=== PATIENT | male | born 1950 | race Caucasian/White ===

== ENCOUNTER 2018-06-09 06:15 | Outpatient (CLI) | payer BC, SELFPAY ==
[2018-06-10 10:46] LABS: PSA, Diagnostic <0.1 ng/ml (0-4.5)
== END 2018-06-09 06:35 ==
PROVIDERS: PCP Family Medicine; Visit Provider Family Medicine
DX: Z85.46 Personal history of malignant neoplasm of prostate (principal)
CPT/HCPCS: 36415; 84153

== ENCOUNTER 2020-01-16 02:21 | Outpatient (CLI) | payer BC, SELFPAY ==
[2020-01-16 08:38] LABS: Calculated LDL 149 mg/dL (<100); Cholesterol 225 mg/dL (<200); Glucose 93 mg/dL (74-106); HDL Cholesterol 59 mg/dL (40-60); Triglyceride 87 mg/dL (<150)
[2020-01-17 09:28] LABS: PSA, Diagnostic <0.1 ng/mL (0.0-4.5)
== END 2020-01-16 02:41 ==
PROVIDERS: PCP Family Medicine; Visit Provider Family Medicine
DX: C61 Malignant neoplasm of prostate (principal); R73.9 Hyperglycemia, unspecified; E78.5 Hyperlipidemia, unspecified
CPT/HCPCS: 36415; 80061; 82947; 84153

== ENCOUNTER 2020-11-30 02:42 | Outpatient (CLI) | payer MEDICARE, SELFPAY ==
[2020-11-30 08:34] LABS: Abs Immature Grans 0.01 10^3/uL (0.0-0.06); Absolute Basophil Count 0.05 10^3/uL (0.0-0.2); Absolute Eosinophil Count 0.12 10^3/uL (0.0-0.7); Absolute Lymphocyte Count 1.32 10^3/uL (1.2-3.4); Absolute Monocyte Count 0.67 10^3/uL (0.1-0.8); Absolute Neutrophil Count 2.02 10^3/uL (1.2-6.7); Basophils % 1.2; Eosinophils % 2.9; HCT 47.1 % (40.0-50.0); HGB 15.9 g/dL (13.5-17.5); Immature Grans % 0.2; Lymphocytes % 31.5; MCH 32.1 pg (27.0-33.0); MCHC 33.8 % (32.0-36.0); MPV 9.8 fL (8.0-11.0); Neutrophils % 48.2; Nucleated RBC 0 %; Platelet Count 167 10^3/uL (130-400); RBC 4.96 10^6/uL (4.36-5.78); RDW 11.9 % (11.8-14.1); RDW-SD 42.1 fL; WBC 4.19 10^3/uL (4.4-10.8)
[2020-11-30 09:54] LABS: ALT 22 U/L (16-63); AST 20 U/L (15-37); Albumin 3.8 g/dL (3.4-5.0); Alkaline Phosphatase 59 U/L (46-116); Anion Gap 6.7 mmol/L (3-11); BUN 25 mg/dL (7-18); Bilirubin, Total 0.6 mg/dL (0.2-1.0); CO2 26.3 mmol/L (21.0-32.0); CREATININE 1.3 mg/dL (0.70-1.30); Calcium 8.8 mg/dL (8.5-10.1); Chloride 106 mmol/L (98-107); Glucose 102 mg/dL (74-106); Potassium 4.8 mmol/L (3.5-5.1); Sodium 139 mmol/L (136-145); TSH (W/Ref FT4) 2.07 uIU/mL (0.36-3.74); Total Protein 6.7 g/dL (6.4-8.2)
== END 2020-11-30 02:43 | disposition home or self-care (01) ==
LOC: LBO 02:42
PROVIDERS: PCP Family Medicine; Visit Provider Family Medicine
DX: R10.9 Unspecified abdominal pain (principal); E03.9 Hypothyroidism, unspecified; G47.33 Obstructive sleep apnea (adult) (pediatric)
CPT/HCPCS: 36415; 80053; 84443; 85025

== ENCOUNTER 2021-01-10 10:07 | Emergency (ER) | payer MEDICARE, SELFPAY ==
[2021-01-10 10:17] LABS: Source Nasal/Nares
[2021-01-10 11:08] LABS: COVID-19 PCR Negative (Negative)
--- NOTE | 2021-01-10 11:16 | NUR.NOTE ---
Nursing Note: Patient sent per hospital to get COVID swabbed. Has had a cough for a few days. Denies need to be seen by a physician. Patient swabbed by [facility] in his car.
--- NOTE | 2021-01-10 17:28 | NUR.NOTE ---
Negative Covid result given to Dylan Kang. Verbalizes understanding.Nursing Note:
--- NOTE | 2021-01-20 10:33 | W.ED.FU ---
[facility] employee presented for Covid swab. Medical screening exam was not requested. I did not evaluate this patient.
== END 2021-01-10 11:16 ==
LOC: ER 10:28
PROVIDERS: Emergency Provider Student in an Organized Health Care Education/Training Program; PCP Family Medicine
DX: Z20.822 Contact with and (suspected) exposure to COVID-19 (principal); Z53.21 Procedure and treatment not carried out due to patient leaving prior to being seen by health care provider
CPT/HCPCS: 87635

== ENCOUNTER 2021-02-04 03:27 | Outpatient (CLI) | payer MEDICARE, SELFPAY ==
[2021-02-04 12:54] LABS: Source Nasal/Nares
[2021-02-05 08:58] LABS: COVID-19 PCR Negative (Negative)
== END 2021-02-04 03:28 | disposition home or self-care (01) ==
LOC: LBO 03:27
PROVIDERS: Nurse Practitioner Family; PCP Family Medicine; Visit Provider Surgery
DX: Z20.822 Contact with and (suspected) exposure to COVID-19 (principal); Z01.818 Encounter for other preprocedural examination
CPT/HCPCS: 87635

== ENCOUNTER 2021-12-24 12:11 | Outpatient (CLI) | payer MEDICARE, SELFPAY ==
[2021-12-24 12:09] LABS: Calculated LDL 149 mg/dL (<100); Cholesterol 228 mg/dL (<200); HDL Cholesterol 58 mg/dL (40-60); Triglyceride 107 mg/dL (<150)
[2021-12-24 18:09] LABS: PSA, Screening <0.1 ng/mL (<=4.5)
[2021-12-25 11:10] LABS: Lyme Ab w Rflx to Lyme Confirm Negative (Negative)
== END 2021-12-24 12:12 | disposition home or self-care (01) ==
LOC: LBO 12:14
PROVIDERS: PCP Family Medicine; Visit Provider Family Medicine
DX: E78.5 Hyperlipidemia, unspecified (principal); Z12.5 Encounter for screening for malignant neoplasm of prostate; W57.XXXA Bitten or stung by nonvenomous insect and other nonvenomous arthropods, initial encounter; T14.8XXA Other injury of unspecified body region, initial encounter; Z85.46 Personal history of malignant neoplasm of prostate
CPT/HCPCS: 36415; 80061; 84153; 86618

== ENCOUNTER 2023-02-10 12:14 | Outpatient (REF) | payer MEDICARE, SELFPAY ==
--- NOTE | 2023-02-10 11:45 | SKI_PTH ---
PATIENT: Dipak Kang LOC: [facility] U#:[id number] AGE/SX: 72/M ROOM: RE02/10/[address]: Dylan Morley MD : [id number] BED: DIS: 02/10/2023 SPEC #: [id number] RECD: 02/10/23 12:56 STATUS: HARI REQ #: [id number] JESSICA: 02/10/23 11:[address]: Dylan Morley DEPT: Surgical Specimen RECD BY: Doris Almodovar ENTERED: 02/10/23 12:57 SP TYPE: MAXIMUS VILLAR DR: Finn Davila MD Tissues: 1 - SKIN BIOPSY(SHAVE/PUNCH) Procedures: SKIN LEVEL 4 Comments: [id number]
== END 2023-02-10 12:15 | disposition home or self-care (01) ==
LOC: LBN 12:14
PROVIDERS: PCP Family Medicine; Visit Provider Otolaryngology
DX: C44.311 Basal cell carcinoma of skin of nose (principal)
CPT/HCPCS: 88305

== ENCOUNTER 2023-04-21 02:51 | Outpatient (CLI) | payer MEDICARE, SELFPAY ==
[2023-04-21 07:54] LABS: Calculated LDL 168 mg/dL (<100); Cholesterol 248 mg/dL (<200); HDL Cholesterol 63 mg/dL (40-60); Triglyceride 89 mg/dL (<150)
[2023-04-21 19:38] LABS: PSA, Diagnostic <0.1 ng/mL (<=6.5)
== END 2023-04-21 02:52 | disposition home or self-care (01) ==
LOC: LBO 02:51
PROVIDERS: PCP Family Medicine; Visit Provider Family Medicine
DX: E78.5 Hyperlipidemia, unspecified (principal); C61 Malignant neoplasm of prostate
CPT/HCPCS: 36415; 80061; 84153

== ENCOUNTER 2024-01-15 01:01 | Outpatient (CLI) | payer MEDICARE, SELFPAY ==
[2024-01-15 08:43] LABS: AST 17 U/L (15-37); Calculated LDL 112 mg/dL (<100); Cholesterol 186 mg/dL (<200); Glucose 101 mg/dL (74-106); HDL Cholesterol 62 mg/dL (40-60); Triglyceride 60 mg/dL (<150)
== END 2024-01-15 01:02 | disposition home or self-care (01) ==
LOC: LBO 01:01
PROVIDERS: PCP Family Medicine; Visit Provider Family Medicine
DX: E78.5 Hyperlipidemia, unspecified (principal); R73.9 Hyperglycemia, unspecified
CPT/HCPCS: 36415; 80061; 82947; 84450

== ENCOUNTER → 2024-06-06 15:26 | Outpatient (BNVA) | payer MEDICARE, SELFPAY | PROVIDERS: PCP Family Medicine; Referring Provider Family Medicine; Visit Provider Podiatrist | DX: L60.0 Ingrowing nail (principal); M79.671 Pain in right foot | CPT/HCPCS: 11750; 99214 ==

== ENCOUNTER 2024-06-13 09:28 | Outpatient (CLI) | payer MEDICARE, SELFPAY ==
--- NOTE | 2024-06-13 10:28 | DI.RAD_ITS ---
Exam(s) XR KNEE LT 3V AP,LAT,TOMMIE EXAM: XR KNEE LT 3V AP,LAT,TOMMIE CLINICAL HISTORY: M17.12 Left knee pain, Osteoarthritis left knee. TECHNIQUE: 2D digital imaging was performed of the left knee. Four images were obtained. AP, later al and PA tunnel views were obtained. COMPARISON: No exams were available for comparison FINDINGS: BONES: No acute fracture is present. No bony destructive lesion is seen. There are findings of a precious or ACL repair. JOINTS: Tricompartment degenerative changes are present characterized by joint space narrowing and os teophytes. The findings are most marked in the medial femoral tibial joint. There is mild medial sommers bluxation of the femur relative to the proximal tibia. There is eabv-ge-ddku contact of the medial f emoral tibial joint. Tiny joint effusion is present. No loose body. SOFT TISSUE: Atherosclerotic calcification is present. IMPRESSION: Marked osteoarthritis of the left knee. DATA REPOSITORY: RADIATION DOSE DELIVERED:
== END 2024-06-13 09:48 ==
LOC: DI 09:29
PROVIDERS: PCP Family Medicine; Visit Provider Family Medicine
DX: M17.12 Unilateral primary osteoarthritis, left knee (principal)
CPT/HCPCS: 73562

== ENCOUNTER 2024-09-29 15:01 | Outpatient (CLI) | payer MEDICARE, SELFPAY ==
--- NOTE | 2024-09-29 11:00 | DI.RAD_ITS ---
Exam(s) XR STANDING ALIGNMENT EXAM: XR STANDING ALIGNMENT CLINICAL HISTORY: OA L KNEE. TECHNIQUE: 2D digital imaging was performed. Four images were obtained. COMPARISON: CR XR KNEE LT 3V AP,LAT,TOMMIE from 06/13/2024 FINDINGS: BONES: The hips are well maintained. The right knee is well maintained. There are again seen marked degenerative changes in the left knee characterized by joint space narrowing and osteophytes. The f indings are most marked in the medial femoral tibial joint. There are findings of a prior ACL repair . There is marked narrowing of the lateral aspect of the ankle joint.There is less than 1 cm leg ulysses gth discrepancy. SOFT TISSUE: Normal. IMPRESSION: Marked osteoarthritis of the left knee. DATA REPOSITORY: RADIATION DOSE DELIVERED:
== END 2024-09-29 15:02 | disposition home or self-care (01) ==
LOC: DIORS 15:01
PROVIDERS: PCP Family Medicine; Referring Provider Family Medicine; Visit Provider Student in an Organized Health Care Education/Training Program
DX: M17.12 Unilateral primary osteoarthritis, left knee (principal)
CPT/HCPCS: 99203; 77073

== ENCOUNTER 2024-10-31 09:31 | Outpatient (CLI) | payer MEDICARE, SELFPAY ==
[2024-10-31 09:01] LABS: HGB 16.1 g/dL (13.5-17.5); MCH 32.9 pg (27.0-33.0); MCV 94 fL (80-95); MPV 9.9 fL (8.0-11.0); Platelet Count 167 10^3/uL (130-400); RBC 4.89 10^6/uL (4.36-5.78); RDW 12.3 % (11.8-14.1); RDW-SD 42.8 fL; WBC 4.33 10^3/uL (4.4-10.8)
[2024-10-31 09:27] LABS: Anion Gap 7.3 mmol/L (3-11); BUN 24 mg/dL (7-18); CO2 29.7 mmol/L (21.0-32.0); CREATININE 1.1 mg/dL (0.70-1.30); Calcium 9.5 mg/dL (8.5-10.1); Chloride 104 mmol/L (98-107); Estimated GFR 71.32 (mL/min/1.73m2); Glucose 98 mg/dL (74-106); Potassium 4.3 mmol/L (3.5-5.1); Sodium 141 mmol/L (136-145)
[2024-10-31 11:45] LABS: Lab Add On Test DONE
[2024-10-31 18:49] LABS: PSA, Diagnostic <0.1 ng/mL (<=6.5)
== END 2024-10-31 09:32 | disposition home or self-care (01) ==
LOC: LBO 09:31
PROVIDERS: PCP Family Medicine; Visit Provider Student in an Organized Health Care Education/Training Program
DX: M17.12 Unilateral primary osteoarthritis, left knee (principal); Z01.818 Encounter for other preprocedural examination; Z85.46 Personal history of malignant neoplasm of prostate
CPT/HCPCS: 36415; 80048; 85027; 84153

== ENCOUNTER 2024-11-01 11:35 | Day surgery (SDC) | payer MEDICARE, SELFPAY ==
[2024-11-01] VITALS (22 sets, daily range): BP systolic 92–139; BP diastolic 51–82; PULSE 44–66; RESP 10–22; TEMP 36.3–36.6; O2SAT 93–99; BMI 24.7
--- NOTE | 2024-11-01 07:36 | W.PM.DSUDISC ---
Date of service: 11/01/24 Discharge Plan Disposition Patient Disposition: Home Condition: Good Discharge Details Reason For Visit: Left knee DJD Attending Provider: Vincent Polanco Primary Care Provider: Finn Davila Home Meds and New Rx's Prescriptions: New acetaminophen 500 mg tablet 1,000 mg PO Q8H PRN Qty: 90 0RF Rx Instructions: Take two tablets up to every 8 hours as needed for pain aspirin 81 mg tablet,delayed release (DR/EC) 81 mg PO BID 30 Days Qty: 60 0RF celecoxib [Celebrex] 200 mg capsule 200 mg PO BID PRNQty: 60 0RF Rx Instructions: Take one tablet twice daily for pain and inflammation docusate sodium [Colace] 100 mg capsule 100 mg PO BID Qty: 28 0RF pantoprazole 40 mg tablet,delayed release (DR/EC) 40 mg PO DAILY Qty: 14 0RF dexamethasone 4 mg tablet 4 mg PO DAILY Qty: 2 0RF Rx Instructions: Take one tablet once daily for two days gabapentin 300 mg capsule 300 mg PO QHS Qty: 14 0RF Rx Instructions: Take one tablet at bedtime oxycodone 5 mg tablet 5 mg PO Q4H PRNQty: 18 0RF Rx Instructions: Take one tablet up to every 4 hours as needed for severe postoperative pain Continued rosuvastatin 5 mg tablet 5 mg PO DAILY Qty: 90 3RF (DME) pen needle, diabetic [Ultra-Thin II Ins Pen [place]] 29 gauge x 1/2 needle 1 ea Miscellaneous PRN Qty: 100 3RF Rx Instructions: 1/2 inch needle, ultra thin for Trimix Injection Tri-Mix ([id number]) 150 mg-5 mg- 50 mcg recon soln 0.1 ml IC .3 x/week PRN (Reason: ED) Qty: 1 7RF Discharge Instructions Additional Instructions: Total Knee Discharge Instructions Activity: The most important activity is to walk and to work on gentle motion (both flexion and extension). You should try to take short walks a few times a day. It is important that when resting you work on keeping the knee straight. Avoid putting a pillow behind the knee as this will encourage flexion. Work on range of motion exercises as provided by Physical Therapy. - Start outpatient physical therapy within 2 weeks. - You should wear the FERN hose on both legs for 2 weeks. You may remove these at night. You may also use any compression sock in place of the FERN hose. - Utilize [employer] to review exercises, see videos on exercises and obtain basic information pertaining to your surgery and your recovery. Dressing: Remove the Akiar wrap by 2 days after your surgery and put on the FERN stocking given to you from the hospital. Keep the surgical dressing (underneath the AKIRA wrap) in place for at least one week. After the first week it may be removed and replaced with light gauze and tape or nothing. The wound and dressing may get wet after 3 days but avoid soaking the dressing or otherwise it will need to be changed. Many people prefer covering the dressing with cling wrap (saran wrap) to minimize it from getting soaked. If it gets wet, just pat dry. If it starts to peel off then it will need to be changed. Medications: - You should take Tylenol and anti-inflammatory Celebrex as your primary pain control medications. If the Celebrex is too expensive or not covered, please call the office for another alternative (Advil/Ibuprofen or Naproxen/Aleve) - You have been prescribed a stronger pain medication Oxycodone for breakthrough pain, take as needed as prescribed. - You have also been prescribed a stomach acid reduction agent Pantoprozole to help reduce stomach acid and reflux. - You have been prescribed Gabapentin to take at night for restlessness and nerve pain. - You will be taking Aspirin 81mg twice a day for DVT prevention unless instructed otherwise. - You have also been prescribed Decadron to take to control post-operative nausea and pain. You will start this tomorrow. - If you have constipation you should take Colace (which has been prescribed) or Miralax (which is available [id number]). It takes most people 3-4 days to have a bowel movement. Follow-up: 2 weeks If you have any acute concerns or questions, please do not hesitate to contact the office at [phone]. You may contact Dr. Polanco with any questions after hours through the hospital at [phone] or on his cell phone at [phone]. Referrals: Vincent Polanco MD [ [facility] STAFF PHYSICIAN] - Equipment/Supplies: Walker Activity:: Elevate Remove Dressings/Wound Care:: Do Not Remove Shower/Bathe:: Cover Diet:: As Tolerated Discharge Orders Discharge Orders: Discharge Order (Routine); Ordered 11/01/24 Ordered By: Yahaira Kramer
--- NOTE | 2024-11-01 08:08 | ANES.PREOP_ITS ---
General Info Date of Service Date Performed: 11/01/24 Height: 5 ft 8 in Weight: 73.936 kg Body Mass Index (BMI): 24.7 Surgical Procedure: Operation Date: 11/01/24 14:25 Proposed Procedure Side Surgeon p Knee Total Arthroplasty w/OrthAlign Left Vincent Polanco MD Meds Allergies and Home Medications Allergies Allergy/AdvReac Type Severity Reaction Status Date / Time azithromycin AdvReac Intermediate rash on Verified 11/01/24 12:23 chest Home Medication ?Medication ?Instructions ?Recorded pen needle, diabetic 29 gauge x ##100 04/06/19 1 (Ultra-Thin II Insulin Pen [place]) rosuvastatin 5 mg tablet 5 mg PO DAILY #90 tabs 06/16/24 papaverine 150 mg-phentolamin 5 0.1 ml intra-cavernosal .3 x/week 09/28/24 mg-alprost 50 mcg intracavernosal PRN ED #1 ea soln (Tri-Mix ([id number])) acetaminophen 500 mg tablet 1,000 mg (2 x 500 mg) PO Q8H PRN 11/01/24 pain #90 tabs aspirin 81 mg tablet,delayed 81 mg PO BID 30 days #60 tabs 11/01/24 release celecoxib 200 mg capsule (Celebrex) 200 mg PO BID PRN #60 caps 11/01/24 dexamethasone 4 mg tablet 4 mg PO DAILY #2 tabs 11/01/24 docusate sodium 100 mg capsule 100 mg PO BID #28 caps 11/01/24 (Colace) gabapentin 300 mg capsule 300 mg PO QHS #14 caps 11/01/24 oxycodone 5 mg tablet 5 mg PO Q4H PRN #18 tabs 11/01/24 pantoprazole 40 mg tablet,delayed 40 mg PO DAILY #14 tabs 11/01/24 release Current Visit Medications: Current Medications Generic Name Dose Route Start Last Admin Trade Name Freq PRN Reason Stop Dose Admin Acetaminophen 1,000 mg 11/01/24 06:00 Acetaminophen 500 Mg Tab PO 11/01/24 23:59 PREOP MADDI Celecoxib 400 mg 11/01/24 06:00 Celecoxib 200 Mg Cap PO 11/01/24 23:59 PREOP MADDI Gabapentin 300 mg 11/01/24 06:00 Gabapentin 300 Mg Cap PO 11/01/24 23:59 PREOP MADDI Hydromorphone HCl 0.5 mg 11/01/24 07:35 Hydromorphone 2 Mg/Ml Syr IVP 12/01/24 07:34 Q2H PRN PRN Ringer's Solution 1,000 mls @ 80 mls/hr 11/01/24 06:00 IV 11/01/24 23:59 INFUSION MADDI Cefazolin Sodium/Dextrose 2 gm in 50 mls @ 100 mls/hr 11/01/24 06:00 Ancef Duplex IVPB 11/01/24 23:59 PREOP MADDI Tranexamic Acid/Sodium Chloride 1,000 mg in 100 mls @ 600 mls/hr 11/01/24 06:00 IVPB 11/01/24 23:59 DIRECTED MADDI Cefazolin Sodium/Dextrose 1 gm in 50 mls @ 100 mls/hr 11/01/24 14:30 Ancef Duplex IVPB 11/02/24 06:59 Q8H MADDI IV Miscellaneous Supplies 1 each 11/01/24 06:00 Iv Access IV 11/01/24 23:59 DIRECTED MADDI Oxycodone HCl 0 mg 11/01/24 07:35 Oxycodone 5 Mg Tab PO 12/01/24 07:34 Q3H PRN PRN Pain Sodium Chloride 0 ml 11/01/24 06:00 Normal Saline Flush 10 Ml Syr IV 11/01/24 23:59 PRN PRN Sodium Chloride 0 ml 11/01/24 06:00 Normal Saline 10 Ml Vial IJ 11/01/24 23:59 DIRECTED PRN Sterile Water 0 ml 11/01/24 06:00 Water,Injection,Sterile 10 Ml Vial IJ 11/01/24 23:59 DIRECTED PRN Tranexamic Acid 1,300 mg 11/01/24 07:35 Tranexamic Acid 650 Mg Tab PO 12/01/24 07:34 ONCE PRN postoperative PFSH Active Problems Active Problems: Problem Status Onset Code Hx of malignant neoplasm of prostate Acute Z85.46 Pain in right foot Acute M79.671 Mucocele of lip Acute K13.0 Skin lesion of face Acute L98.9 Dysplastic skin lesion Acute L98.8 Tick bite Acute W57.XXXA Encounter for screening laboratory testing for COVID-19 virus Acute Z20.822 Inguinal hernia Acute K40.90 Screening for colon cancer Acute Z12.11 SALO (obstructive sleep apnea) Chronic G47.33 Osteoarthritis of left knee Acute 12/06/08 M17.12 Osteoarth NOS-l/leg Acute 12/06/08 Hyperlipidemia with target LDL less than 100 Acute 07/16/04 E78.5 Gastroesophageal reflux disease Acute 03/22/12 K21.9 Erectile dysfunction following radical prostatectomy Acute 10/09/14 N52.31 Benign neoplasm of colon Acute 07/30/05 D12.6 Adenomatous polyp of ascending colon Acute 07/30/05 D12.2 Medical History Medical History (Updated 10/31/24 @ 13:45 by Seven Mercer) Hx of fracture of nose Basal cell carcinoma of nose Surgical History Surgical History (Updated 10/31/24 @ 13:45 by Seven Mercer) Hx of shoulder surgery x2 History of meniscectomy of left knee History of repair of anterior cruciate ligament of left knee lesik eye surgery (06/29/15) [place], [place] Hernia Repair, Incisional (10/05/12) R inguinal, [place] Tobacco Smoking/Tobacco Use Status: Never Passive smoking exposure: No Second hand exposure: No Alcohol Alcohol Intake: current Alcohol intake frequency: 0-2 drinks per day Alcohol type: beer and hard liquor Substance Use Substance use: Rarely Substance use type: marijuana Vital Signs and Lab Results Vital Signs Most Recent Vital Signs in EMR: Temp Pulse Resp BP Pulse Ox 36.4 C L 44 L 15 132/82 99 11/01/24 12:00 11/01/24 12:00 11/01/24 12:00 11/01/24 12:00 11/01/24 12:00 Lab Results Blood Type / Crossmatch: No Data to Display Complete Blood Count: White Blood Count 4.33 10^3/uL (4.4-10.8) L 10/31/24 08:51 Red Blood Count 4.89 10^6/uL (4.36-5.78) 10/31/24 08:51 Hemoglobin 16.1 g/dL (13.5-17.5) 10/31/24 08:51 Hematocrit 46.0 % (40.0-50.0) 10/31/24 08:51 Platelet Count 167 10^3/uL (130-400) 10/31/24 08:51 Complete Metabolic Panel: Sodium 141 mmol/L (136-145) 10/31/24 08:51 Potassium 4.3 mmol/L (3.5-5.1) 10/31/24 08:51 Chloride 104 mmol/L (98-107) 10/31/24 08:51 Carbon Dioxide 29.7 mmol/L (21.0-32.0) 10/31/24 08:51 BUN 24 mg/dL (7-18) H 10/31/24 08:51 Creatinine 1.1 mg/dL (0.70-1.30) 10/31/24 08:51 Est GFR (CKD-EPI 2020) 71.32 (mL/min/1.73m2) 10/31/24 08:51 Calcium 9.5 mg/dL (8.5-10.1) 10/31/24 08:51 Glucose 98 mg/dL (74-106) 10/31/24 08:51 Liver Function Panel: No Data to Display Coagulation Panel: No Data to Display Cardiac Panel: No Data to Display Arterial Blood Gas: No Data to Display Venous Blood Gas: No Data to Display Pancreas Panel: No Data to Display Thyroid Panel: No Data to Display Infectious Disease: No Data to Display Blood Cultures: No Data to Display Toxicology Panel: No Data to Display Anesthesia Assessment and Plan Anesthesia History Personal History: No History of Anesthesia Complications Family History: No Family History of Anesthesia Complications Exercise Tolerance Exercise Tolerance: Metabolic Equivalents>4 Cardiac & Pulmonary Exam Cardiac Exam: Normal S1/S2 Heart Sounds Pulmonary Exam: Clear Bilateral Breath Sounds Implantable Cardiac Device Does patient have a Pacemaker or an ICD?: No Airway Exam Known Difficult Airway: No Mallampati Class: 3 Mouth Opening: Normal (> 3cm) Thyromental Distance: Greater than 3 cm Neck Range of Motion: Full ROM Neck Circumference: Normal Teeth Condition: Normal Dentition ASA Classification ASA Score: ASA 2 Emergency Case?: No NPO Status NPO Status: NPO Clears >2 hours, Solids >8 hours Anesthesia Plan Resuscitation Status: Full Code Anesthesia Technique: General Anesthesia Airway Planned: Natural Airway Pain Management: Surgeon and patient request nerve block Monitors Used: Standard Monitors Preoperative Comments:: 74 yo male for TKA. Sig PMHx: SALO (no cpap), GERD (no meds listed. occ tums), prostate CA. Occ EtOH/cannabis, never smoker.
--- NOTE | 2024-11-01 12:14 | W.PREOPHP ---
Assessment and Plan Assessment and plan (1) Osteoarthritis of left knee: Status: Acute Assessment and plan: Dylan is a 74-year-old male who has posttraumatic arthritis of the left knee. He is here today for knee replacement. Once again I reviewed the proposed surgery and its technical details. I discussed the risk of the surgery to include bleeding, infection, pain, stiffness, component loosening, damage nerves and vessels, damage to muscle and tendons, instability, blood clot, need for repeat procedures. Despite these risk, he elects to proceed. History of Present Illness History of Present Illness Chief Complaint: Left Knee Post-Traumatic Arthritis Narrative: Dylan is a 74-year-old active male who has known posttraumatic arthritis but his left knee. He has been dealing this for many years and at this point has significant dysfunction and is here today for knee replacement surgery. Please the previous office note dated 09/29/2024 for more details. At this point he has no chest pain shortness of breath. He has no recent illness. He has no sick contacts. He has no fever no chills. Review of Systems All systems reviewed & are unremarkable except as noted in HPI and below PFSH All Active Problems Hx of malignant neoplasm of prostate (Acute) Pain in right foot (Acute) Mucocele of lip (Acute) Skin lesion of face (Acute) Dysplastic skin lesion (Acute) Tick bite (Acute) Encounter for screening laboratory testing for COVID-19 virus (Acute) Inguinal hernia (Acute) Screening for colon cancer (Acute) SALO (obstructive sleep apnea) (Chronic) Osteoarthritis of left knee (Acute 12/06/08) L KNEE; S/P ARTHROSCOPY/ACL reconstruction Osteoarth NOS-l/leg (Acute 12/06/08) L KNEE; S/P ARTHROSCOPY Hyperlipidemia with target LDL less than 100 (Acute 07/16/04) peak LDL 169 2005, average risk, goal LDL<130; controlled with life style; new calc 07/2015 7.7% riisk --> no statin Gastroesophageal reflux disease (Acute 03/22/12) occ tums Erectile dysfunction following radical prostatectomy (Acute 10/09/14) Benign neoplasm of colon (Acute 07/30/05) F/U [facility] [place]; TUBULAR ADENOMA; LAST COLON 03/2011 Adenomatous polyp of ascending colon (Acute 07/30/05) F/U [facility] [place]; TUBULAR ADENOMA; LAST COLON 03/2011 Medical History Hx of fracture of nose Basal cell carcinoma of nose Surgical History Hx of shoulder surgery x2 History of meniscectomy of left knee History of repair of anterior cruciate ligament of left knee lesik eye surgery (06/29/15) [place], [place] Hernia Repair, Incisional (10/05/12) R inguinal, [place] Family History Mother Diabetes Sister , 49 Non Hodgkin's lymphoma Sister No problems noted. Brother Neoplasm Throat cancer Prostate cancer Brother No problems noted. Father , 89 Hypertension Prostate cancer Sister No problems noted. Sister No problems noted. Brother Prostate cancer Brother No problems noted. Brother No problems noted. Brother No problems noted. Brother No problems noted. Brother No problems noted. Maternal Grandfather , 66 Ruptured AAA AAA (abdominal aortic aneurysm) Paternal Grandfather , 83 Cancer Maternal Grandmother , 89 Hyperlipidemia Paternal Grandmother , 94 No problems noted. Daughter No problems noted. Daughter No problems noted. Daughter Oligodendroglioma Social History Smoking/Tobacco Use Status: Never Second Hand Exposure: No Smoking risk assessment performed?: Yes Alcohol Intake: current Alcohol Intake frequency: 0-2 drinks per day Alcohol type: beer and hard liquor Drug use: Rarely Substance use type: marijuana Counseling given: No Caregiver/Support person: No Household members: spouse Housing: house Communication Needs: None Do you need help understanding health information?: Never Pets and animals: No Sexually active: Yes Do you think of yourself as: straight/heterosexual Current gender identity: male What is your relationship status?: How often do you talk on the phone with friends or family?: once per week How often do you get together with friends or relatives?: once per week How often do you attend sabianism or yarsanism services?: decline to answer Do you belong to any clubs or organized social groups?: no Panel score (0-1 are the most socially isolated patients): 1 What type of physical activity do you participate in: aerobic, bicycling, weight lifting and other Duration: 15-30 minutes/day Frequency: 5-6 times per week Cindy/Anabaptist: No preference Special cindy needs: No Seatbelt use: always Helmet use: Yes Helmet use: sometimes Drive intox or ride w/intox lyft driver: No Do you feel safe at home: Yes Do you feel safe in your relationship?: Yes Meds Allergies and Home Medications Allergies Allergy/AdvReac Type Severity Reaction Status Date / Time azithromycin AdvReac Intermediate rash on Verified 10/31/24 13:46 chest Home Medications ?Medication ?Instructions ?Recorded ?Confirmed ?Type pen needle, diabetic 29 gauge x ##100 04/06/19 09/29/24 Rx 1/2 (Ultra-Thin II Insulin Pen [place]) rosuvastatin 5 mg tablet 5 mg PO DAILY #90 tabs 06/16/24 10/31/24 Rx papaverine 150 mg-phentolamin 5 0.1 ml intra-cavernosal .3 x/week 09/28/24 10/31/24 Rx mg-alprost 50 mcg intracavernosal PRN ED #1 ea soln (Tri-Mix ([id number])) acetaminophen 500 mg tablet 1,000 mg (2 x 500 mg) PO Q8H PRN 11/01/24 Rx pain #90 tabs aspirin 81 mg tablet,delayed 81 mg PO BID 30 days #60 tabs 11/01/24 Rx release celecoxib 200 mg capsule (Celebrex) 200 mg PO BID PRN #60 caps 11/01/24 Rx dexamethasone 4 mg tablet 4 mg PO DAILY #2 tabs 11/01/24 Rx docusate sodium 100 mg capsule 100 mg PO BID #28 caps 11/01/24 Rx (Colace) gabapentin 300 mg capsule 300 mg PO QHS #14 caps 11/01/24 Rx oxycodone 5 mg tablet 5 mg PO Q4H PRN #18 tabs 11/01/24 Rx pantoprazole 40 mg tablet,delayed 40 mg PO DAILY #14 tabs 11/01/24 Rx release Exam Const General: cooperative, healthy appearing, comfortable and no acute distress Resp Effort & Inspection: normal respiratory effort Auscultation: clear to auscultation bilaterally Cardio Rate: regular rate Rhythm: regular rhythm Results Last Vital Signs Temp 36.4 C L 11/01/24 12:00 Pulse 44 L 11/01/24 12:00 Resp 15 11/01/24 12:00 BP 132/82 11/01/24 12:00 Pulse Ox 99 11/01/24 12:00
[2024-11-01] MEDS: Celecoxib 200 MG CAP 400 MG PO (12:34)
[2024-11-01] MEDS: Acetaminophen 500 MG TAB 1000 MG PO (12:34)
[2024-11-01] MEDS: Gabapentin 300 MG CAP PO (12:34)
[2024-11-01] MEDS: Lactated Ringers 1,000 ML 80 ML IV (12:35)
[2024-11-01] MEDS: ceFAZolin 2 GM/50 ML BAG IVPB (13:35)
[2024-11-01] MEDS: TRANEXAMIC ACID/SOD. CHL. 1,000 MG/100 ML BAG 600 MG IVPB (13:43)
--- NOTE | 2024-11-01 13:50 | W.ANESNERVE ---
Nerve Block Single Injection Procedure Date and Time Date Performed: 11/01/24 Procedure Start: 13:16 Location Where Procedure Performed Procedure Location: Day Surgery Unit Reason Performed: Postoperative Analgesia Requesting Provider: Vincent Polanco Timeout Performed Timeout Performed: Yes Monitoring Used ECG, Blood Pressure and SpO2 Sterility Sterility: Hand Hygiene, Surgical Cap, Surgical Mask, Sterile Gloves and Chlorhexidine Sedation Given During Procedure Sedation Given (Indicate Dose Given): Propofol IV Dose:: 30 mg Patient Mental Status Patient Mental Status: Sedate with meaningful communication Nerve Block 1st Nerve Block: Laterality: Left Block Type: Adductor Canal Ultrasound Image Saved?: Yes Needle / Catheter Used: 100mm SonoPlex II Local Anesthetic Bolus (Indicate Dose Given): Bupivacaine 0.25% Dose:: 7 mL and Exparel Dose:: 7 mL Additives (Indicate Dose Given): None Ultrasound: Sterile probe cover and gel used Nerve Stimulator: Supplement to Ultrasound use and No twitch or parasthesia noted < 0.5 mA (0.6) Paresthesia: None Procedure Tolerated: No Complications Procedure Outcome: Successful Performed By: Aravind Stewart 2nd Nerve Block: Laterality: Left Block Type: Other (anterior femoral cutaneous nerves) Ultrasound Image Saved?: No Needle / Catheter Used: 100mm SonoPlex II Local Anesthetic Bolus (Indicate Dose Given): Bupivacaine 0.25% Dose:: 5 mL Additives (Indicate Dose Given): None Ultrasound: Sterile probe cover and gel used Nerve Stimulator: Supplement to Ultrasound use and No twitch or parasthesia noted < 0.5 mA (0.6) Paresthesia: None Procedure Tolerated: No Complications Procedure Outcome: Successful Performed By: Aravind Stewart
--- NOTE | 2024-11-01 15:19 | ROE_ITS ---
Operative Note Operative Note PRE-OP DIAGNOSIS: Left Knee Osteoarthritis POST-OP DIAGNOSIS: same PROCEDURE: Left Total Knee Replacement with Intraoperative Navigation SURGEON: Vincent Polanco PRINCIPAL DATABASE DEVELOPER: Yahaira Kramer ANESTHESIA TYPE: Spinal Refer to Anesthesia Record ESTIMATED BLOOD LOSS: 100 PATHOLOGY: none sent TOURNIQUET TIME: 0 COMPLICATIONS: None Patient was transported to: PACU Patient's condition: stable Implants: 1. Depuy Attune Cementless Cruciate Retaining Femoral Component, Size 9 2. Depuy Attune Cementless Fixed Bearing Tibial Component, Size 7 3. Depuy Attune 9x7mm CR/FB Poly 4. Depuy Attune Patellar Component, Size 35 mm Indications: I have seen Dylan in clinic for symptoms of post-traumatic LEFT knee arthritis, confirmed with radiographic findings. Dylan has exhausted nonoperative methods and was having significant limitations in daily function and desired better function and less pain. I discussed the technical details of a knee replacement. I explained the risks of the procedure to include, but not limited to, bleeding, infection, pain, stiffness, fracture, damage to nerves and vessels, damage to muscles and tendons, loosening, need for repeat procedure, blood clot and cardiopulmonary demise. Despite these risks, Dylan elected to proceed. Findings: There was significant signs of arthritis throughout the knee with notable deformity of the medial tibia and osteophytes throughout. Procedure Description: Dylan was greeted in the preoperative holding area where the correct side was identified and marked. The consent was reviewed with the patient and signed. The history and physical was updated. All questions were answered. Preoperative mediacations were administered: Acetaminophen 1000mg, Celebrex 400mg, and Gabapentin 300mg. An adductor canal block was then administered by the anesthesia team in the DSU. Dylan was taken back to the operating room. A spinal anesthestic was then administered. The patient was placed into the supine position on the operating room table. Posts were placed for positioning during the procedure. All bony prominences were well padded. Prophylactic antibiotics in the form of Cefazolin were administered. 1g of Tranxemic Acid was given intravenously within 30 minutes of incision. The left leg was then prepped with Chloraprep and draped in a standard fashion with impervious stockinette. A second prep with Chloraprep was performed prior to application of Iodine impregnated skin protection. A timeout to confirm correct identity, side and site, procedure, allergies, anesthesia, and medical concerns was performed. With the knee in some flexion, a midline incision was made overlying the knee. Full thickness skin flaps were raised once the extensor mechanism was encountered. These were raised medially and laterally. Any bleeding was controlled with electrocautery. Once the extensor mechanism was fully exposed, a medial parapatellar arthrotomy was performed in a flexed position. All bleeding from the arthrotomy and the geniculate arteries was coagulated. A medial subperiosteal peel was performed with electrocautery to the midcoronal plane. Due to the significant varus deformity the entire medial tibial plateau was exposed. The fat pad was removed while keeping the patellar tendon protected. The anterior distal femur synovium was removed for later visualization. The ACL and PCL were resected and the anterior horn of the lateral meniscus was transected. The knee was then flexed with the patella everted. Large osteophytes from the tibia were removed. Large osteophytes from the femur were removed. The medial tibia screwhead was visible but was left in place. A single starting pin was then placed 1cm anterior to the PCL insertion and the notch in the direction of the femoral head. The OrthoAlign device was applied over the pin. It was oriented to be in line with the epicondylar axis and the trochlear groove. It was then pinned into place. The navigation computer was then turned on and calibrated. The distal femur cut was set at 1 degrees varus and 3.5 degrees flexion. The distal femur cutting guide then was positioned for a 9mm cut. The distal femur was cut with an oscillating saw while protecting the soft tissues. The tibia was then addressed. The OrthoAlign device was placed over the tibial tubercle and medial tibia and secured into position. Once again, OrthoAlign was calibrated and then set for a 2.5 degree varus cut and 6 degrees of posterior slope. With this locked into position, the cut thickness stylus was used to assess cut thickness. The medial side, most involved side, was set for a 4mm cut. This was then held in position and pinned into place with 2 additional pins and a cross pin for stability. The medial and lateral collateral ligaments were protected and the cut was performed. With this completed, it was assessed and noted to be of appropriate dimensions. The guide and OrthoAlign was removed. A spacer block was inserted and the knee was brought into extension to ensure enough space was present. . The Orthoalign gap balancing device was then placed in extension. This was used to ensure that the ligaments were properly balanced with up to 2 to 3 mm laxity laterally compared medially. The extension gap was measured as 19mm. Posteromedial tibia was fully released and osteophytes removed. The knee was then brought into 90 degrees of flexion and the ligament route returner was once again placed. Under the same amount of force the flexion gap was measured. The Attune specific jig was placed and the flexion gap was made to match the extens ion gap. The femur was then sized as a size 9. The 4-in-1 cutting guide was the placed. An ruy wing was used to confirm appropriate position of the anterior cut to avoid notching. This cutting guide was ensured to be flush on the cut surface and then pinned into place with headed pins. While protecting the soft tissues, quad tendon, and collateral ligaments, the anterior and posterior cuts were performed with a saw. The central two pins were removed and the posterior and anterior chamfers were cut next. The notch-cutting guide was placed. This was pinned to lateralize the femoral c omponent as much as possible while keeping it flush on the cut surface. This was then pinned into position. A saw was used to make the notch cut. A rasp smoothed the cut surfaces. The medial and lateral menisci were removed. A trial femoral component was then inserted, impacted down to the cut surfaces, and the lug holes were drilled. A provisional trial tibial component was placed and the knee was brought through range of motion. There was noted to be excellent extension and flexion. There was no significant instability. The patella was tracking without thumbs. A size 6mm polyethylene component provided the best range of motion and stability with less than 2mm gapping with medial and lateral stress and full extension without significant hyperextension. The tibial cut surface was fully exposed. The tibia was then sized as a 7. The tibia had been previously marked during trialing to correspond to the center of the tibial component to help with rotation. The trial was aligned to this brandy, approximately rotated to the medial 1/3rd of the tibial tubercle. The trial was pinned into place. The tibia was prepared with a reamer and a keel punch and lug holes. The knee was then brought into extension and the patella was measured as 27mm. Using the patellar clamp and cut guide, this was resected to a flat surface with at least 13mm of thickness remaining. The size 35 patella fit the best. This was oriented and then clamped into position. The lugs were drilled. The trial components were removed. The final components were opened on the back table. The periosteal and capsular tissues, especially posteriorly, around the knee were then systematically injected with a periarticular cocktail consisting of 246mg of Ropivacaine, 0.5mg of Epinephrine, 0.08mg of Clonidine, and 30mg of Ketorolac, diluted to 100cc. On the back table, with the implants opened, the cement was mixed. One batch of high viscosity cement was prepared with vacuum assistance. After the cement was ready a small amount was placed on the cut surface of the patella and the patellar button was clamped into position and held. Then, the knee components were placed. Starting with the tibial component, the tibia was subluxed anteriorly and the lug holes of the component were lined up. The tibia was then impacted with an impactor and mallet until the tibial component was in contact with the tibia. Then, the femoral component was inserted. The lug holes were aligned and the component was impacted into position. The final polyethylene component was inserted. The knee was irrigated with Surgiphor Betadine solution. This was allowed to sit in the knee for 3 minutes and then it was thoroughly irrigated out with saline. After the cement had finally cured, approximately 15min, the clamp was removed from the patella. The knee was then taken through range of motion. The patella was tracking with a no-thumbs technique. A complete synovectomy of the patella was performed. Any prominence to the lateral facet was resected with a rongeur. The capsule was then reapproximated with a No. 1 Vicryl and No. 2 Fiberwire at multiple locations. The capsule was finally closed with a No. 2 Stratafix, barbed suture. Deep tissues were then reapproximated with 0 Vicryl and 2-0 Vicryl. The skin was closed with a running 3-0 Monocryl in a subcuticular fashion. This was reinforced with skin glue. A Mepilex silver dressing was applied along with a [id number] GALE wrap. A CryoCuff was applied. NAME was transferred to the hospital bed without difficulty an suffering no apparent complication. Dylan has a good prognosis. Physical therapy will start today and without restrictions, weight-bearing as tolerated. Aspirin 81mg BID will be used for DVT prophylaxis. Date of Procedure: 11/01/24
--- NOTE | 2024-11-01 16:19 | W.ANESPOSTOP ---
Postoperative Evaluation Date, Time and Location Date Performed: 11/01/24 Time Performed: 16:19 Patient Location: PACU Vital Signs Most Recent Imported Vital Signs: Most Recent Vital Signs Temp Pulse Resp BP Pulse Ox 36.4 C L 48 L 12 110/58 L 94 11/01/24 16:10 11/01/24 16:11 11/01/24 16:11 11/01/24 16:11 11/01/24 16:11 Pain Score Most Recent Pain Score: Most Recent Pain Score Pain Level 0 11/01/24 16:10 Assessment Mental Status: Awake (Alert & Oriented to Patient Baseline) Airway and Respiratory Function: Patent airway with normal (patient baseline) respiratory exam Cardiovascular Function: Hemodynamically Stable Hydration Status: Adequately Hydrated Nausea & Vomiting: No Nausea or Vomiting Pain: Pain is tolerable per patient Peripheral Nerve Block: Regional nerve block not resolved at time of post operative discharge
--- NOTE | 2024-11-01 17:07 | IN_ITS ---
PT Notes Visit Reasons: Left knee DJD Physical Therapy Day Surgery Initial Evaluation Date: 11/01/2024 Referring Doctor: Yahaira Kramer PT Orders: PT CONSULT: S/P Orthi Surgery Precautions: WBAT on the L LE with AD. Patient Profile/Admitting Diagnosis: Dylan is a 74-year-old male with degenerative joint disease of the left knee and is status post left total knee arthroplasty on postoperative day 0. PMHX: All Active Problems Hx of malignant neoplasm of prostate (Acute) Pain in right foot (Acute) Mucocele of lip (Acute) Skin lesion of face (Acute) Dysplastic skin lesion (Acute) Tick bite (Acute) Encounter for screening laboratory testing for COVID-19 virus (Acute) Inguinal hernia (Acute) Screening for colon cancer (Acute) SALO (obstructive sleep apnea) (Chronic) Osteoarthritis of left knee (Acute 12/06/08) L KNEE; S/P ARTHROSCOPY/ACL reconstruction Osteoarth NOS-l/leg (Acute 12/06/08) L KNEE; S/P ARTHROSCOPY Hyperlipidemia with target LDL less than 100 (Acute 07/16/04) peak LDL 169 2005, average risk, goal LDL<130; controlled with life style; new calc 07/2015 7.7% riisk --> no statin Gastroesophageal reflux disease (Acute 03/22/12) occ tums Erectile dysfunction following radical prostatectomy (Acute 10/09/14) Benign neoplasm of colon (Acute 07/30/05) F/U [facility] [place]; TUBULAR ADENOMA; LAST COLON 03/2011 Adenomatous polyp of ascending colon (Acute 07/30/05) F/U [facility] [place]; TUBULAR ADENOMA; LAST COLON 03/2011 Medical History Hx of fracture of nose Basal cell carcinoma of nose Surgical History Hx of shoulder surgery x2H istory of meniscectomy of left knee History of repair of anterior cruciate ligament of left knee lesik eye surgery (06/29/15) [place] Hernia Repair, Incisional (10/05/12) Shandra Rowan Social History/Home Situation: Lives with in a private home with 4 steps to enter. 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 Independent with all aspects of ADLs prior to surgery. Daughter is also a PT. Equipment Owned/DME: None Subjective: Agreeable to consult. Reported 2/10 pain in the hip area. Has performed all his knee exercises prior to this provider coming in. Objective: General Observation: Resting in bed. Zee Gonzalez present in room throughout evaluation. Mental Status: A and O x 4 Pain: 2/10 in the L lateral proximal thigh ROM: Right Lower Extremity: Hip flexion WFL. Hip abduction WFL. Knee flexion WFL. Ankle dorsiflexion limited. Ankle plantarflexion WFL. Left Lower Extremity: Hip flexion WFL. Hip abduction WFL. Knee flexion about 0- 100 degrees in supine. Ankle dorsiflexion limited. Ankle plantarflexion WFL. Strength: Right Lower Extremity: Hip flexors 5/5. Hip abductors 5/5. Knee flexors 5/5. Knee extensors 5/5. Ankle dorsiflexors 3-/5. Ankle plantarflexors 5/5. Left Lower Extremity:Hip flexors 4-/5. Hip abductors 4-/5. Knee flexors 3--/5. Knee extensors 4--/5. Ankle dorsiflexors 3--/5. Ankle plantarflexors 4-/5. Sensation: Minimal numbness in L sole of foot that did not limit mobility performance Bed Mobility/Transfers: Minimal cueing provided directions only Supine to sit stand by assist Sit to stand contact guard assist with FWW Stand to sit stand by assist Bed to chair stand by assist Gait: Facilitated safe and Performance of level surface ambulation covering a distance of 100 feet feet using front wheeled walker with standby assist. Reciprocal heel-toe step through gait pattern but with mild antalgia noted. Mild pronation in B feet noted, L more than R. Denied headache, chest pain, lightheadedness throughout session. Pain level did not go up higher than 2/10 mainly in the L proximal thigh. Stairs: Negotiated 3 x 4 inch steps and 2 x 6 inch steps while holding onto bilateral rails with step-to gait pattern, standby assist only. Decreased knee flexion during ascent on the left. Balance: Static Sitting: Normal Dynamic Sitting: Normal Static Standing: Fair Dynamic Standing: Fair Special Tests: Mobility Limitations Standardized Measure [facility] 6 clicks Basic Mobility Inpatient Short Form: Raw Score: 23 CMS Score: 11% deficit Informed Consent/Education: Patient instructed in purpose of PT consult. Packet containing TKA exercise protocol has been given to patient. Assessment: Patient requires the use of FWW for all mobility ADL performance maximize send reduce fall risk. Patient presents with clinical signs and symptoms consistent with current/admitting diagnoses that have resulted to mobility limitations, gait instability, generalized weakness, and impairment of motor control as demonstrated by the following impairment level findings: 1. Decreased strength to left knee major muscle groups 2. Impaired standing balance 3. Limitation of joint range of motion in left knee Impairments are contributing to the following functional limitations: 1. Inability to safely ambulate without assistive device 2. Increase completion time for mobility ADL performance 3. Increased fall risk Patient is assessed as a 58579 moderate complexity based on the following: History: 74-year-old male with impairment level findings, functional limitations, and past medical history as indicated above Examination: Demonstrable impairment in strength, balance, and mobility level with underlying impairments and functional limitations as documented above Presentation: Evolving Decision Makin moderate complexity Goals: N/A. PT evaluation and 1-2 treatment sessions only for functional mobility training using recommended AD and for HEP instruction. Plan of Care/Treatment Plan: N/A. PT evaluation and 1-2 treatment session only for functional mobility training using recommended AD and for HEP instruction. DISCHARGE RECOMMENDATIONS: Home when medically cleared by orthopedic surgeon. Recommend outpatient PT services in order to optimize functional mobility outcomes and facilitate return to independent community ambulation without an assistive device. TREATMENT CODE/TIME: 59304 x 21 minutes for 1 unit (17:07-17:28). Thank you for the opportunity to participate in the care of this patient. Please sign an return this page within 30 days if you agree with the above POC. Thank you! Physician Signature Date [facility] Vero Jalloh PT, DPT, CLT [facility] [place], [place]
[2024-11-01] MEDS: Tranexamic Acid 650 MG TAB 1300 MG PO (17:29)
== END 2024-11-01 17:55 | disposition home or self-care (01) ==
LOC: SUR 11:35
PROVIDERS: PCP Family Medicine; Visit Provider Student in an Organized Health Care Education/Training Program
PROC: (CPT 27447; principal; 2024-11-01 14:15)
DX: M17.12 Unilateral primary osteoarthritis, left knee (principal); G89.18 Other acute postprocedural pain
CPT/HCPCS: 20985; 27447; 64447; 64450; 97162; C1776; J0665; J0666; J0690; J1100; J2371; J2401; J2405; J2598; J2704

== ENCOUNTER 2024-11-14 08:36 | Outpatient (CLI) | payer MEDICARE, SELFPAY ==
--- NOTE | 2024-11-14 08:00 | DI.RAD_ITS ---
Exam(s) XR KNEE LT 1V XR STANDING ALIGNMENT EXAM: XR STANDING ALIGNMENT and XR knee LT 1 V CLINICAL HISTORY: 1ST POST OP S/P L TKA. TECHNIQUE: 2D digital imaging was performed. Five images were obtained. COMPARISON: CR XR KNEE LT 3V AP,LAT,TOMMIE from 06/13/2024 CR XR STANDING ALIGNMENT from 09/29/2024 FINDINGS: BONES: The hips are well maintained. Since the prior examination, the patient has undergone a left t otal knee arthroplasty. The orthopedic hardware appears in good position. No evidence of loosening is seen. The right knee is unremarkable. There is marked narrowing of the lateral aspect of the lef t ankle joint with lateral tilt of the talus relative to the tibia.There is no significant leg length discrepancy. Findings of a prior left ACL repair. SOFT TISSUE: Normal. IMPRESSION: 1. Interval placement of a left total knee arthroplasty. 2. Marked arthrosis of the left ankle. DATA REPOSITORY: RADIATION DOSE DELIVERED:
== END 2024-11-14 08:37 | disposition home or self-care (01) ==
LOC: DIORS 08:36
PROVIDERS: PCP Family Medicine; Referring Provider Family Medicine; Visit Provider Student in an Organized Health Care Education/Training Program
DX: Z96.652 Presence of left artificial knee joint (principal); Z47.1 Aftercare following joint replacement surgery
CPT/HCPCS: 99024; 73560; 77073

== ENCOUNTER → 2024-12-12 08:49 | Outpatient (BNVA) | payer MEDICARE, SELFPAY | PROVIDERS: PCP Family Medicine; Visit Provider Student in an Organized Health Care Education/Training Program | DX: Z47.1 Aftercare following joint replacement surgery (principal); Z96.652 Presence of left artificial knee joint | CPT/HCPCS: 99024 ==

== ENCOUNTER → 2025-02-02 08:53 | Outpatient (BNVA) | payer MEDICARE, SELFPAY | PROVIDERS: PCP Family Medicine; Visit Provider Student in an Organized Health Care Education/Training Program | DX: Z47.1 Aftercare following joint replacement surgery (principal); Z96.652 Presence of left artificial knee joint | CPT/HCPCS: 99212 ==

== ENCOUNTER 2025-04-25 00:55 | Outpatient (CLI) | payer MEDICARE, SELFPAY ==
--- NOTE | 2025-04-25 | DI.MRI_ITS ---
Exam(s) MR LOWER JOINT LT WO EXAM: MR LOWER JOINT LT WO CLINICAL HISTORY: M25.571,G89.29,M25.572 Evaluate for posterior tibialis dysfunciton TECHNIQUE: Multiplanar multisequence MRI was performed without intravenous contrast. COMPARISON: CR XR ANKLE MIN 3 VIEWS BILAT (STANDARD) from 03/13/2025 FINDINGS: The examination is limited due to patient motion artifact. BONES/JOINTS: No fracture or contusion pattern. No bone lesions identified. The talar dome is smooth. There is asymmetric narrowing of the ankle joint. There is more significant narrowing seen laterally. Subchondral edema is seen in both the talar dome and the tibial plafond. There is a small joint effusion. There is a chronic appearing depression and edema seen in the inferior calcaneus. LIGAMENTS: The tibiofibular ligaments are intact. There is a partial tear the anterior talofibular ligament. The calcaneofibular ligament is not visualized. There may also be a partial tear of the posterior talofibular ligament. The deltoid ligament is intact. The syndesmosis is unremarkable. Sinus tarsi is normal. MUSCULOTENDINOUS STRUCTURES: Achilles tendon: Unremarkable. Plantar fascia: Unremarkable. Anterior Extensor tendons: Unremarkable. Posterior Tibialis: Unremarkable. Flexor Digitorum longus: Unremarkable. Flexor Hallucis longus: Unremarkable. Peroneus longus: Unremarkable. Peroneus brevis:Unremarkable. SOFT TISSUES: There is hyperintense signal seen in the soft tissues inferior to the fibula. OTHER FINDINGS: Chronic osseous densities at the tip of the medial malleolus. IMPRESSION: 1. Findings suspicious for partial tears of the anterior and posterior talofibular ligaments. Findings suspicious for tear of the calcaneofibular ligament. 2. Arthrosis of the ankle joint with loss of the articular cartilage and joint space narrowing. 3. There is a small ankle joint effusion. 4. Reactive marrow changes seen in the lateral malleolus. DATA REPOSITORY:
--- NOTE | 2025-04-25 | DI.MRI_ITS ---
Exam(s) MR LOWER JOINT RT WO EXAM: MR LOWER JOINT RT WO CLINICAL HISTORY: M25.571,G89.29,M25.572 Evaluate for posterior tibialis dysfunciton TECHNIQUE: Multiplanar multisequence MRI was performed without intravenous contrast. COMPARISON: CR XR ANKLE MIN 3 VIEWS BILAT (STANDARD) from 03/13/2025 MR MR LOWER JOINT LT WO from 04/25/2025 FINDINGS: SKIN: No evidence of ulcer nor subcutaneous tract. BONES/JOINTS: There is an element of hindfoot valgus. No evidence of fracture. There are degenerative changes in the tibiotalar ankle joint and there is a mature osteochondral defect in the medial aspect of the talar dome which measures 7 mm wide x 11 mm APx 2 mm deep. There is minimal if any subarticular bone edema in the talus at this level. There is some degenerative change in the tibiotalar joint which is more so posteriorly than anteriorly an os trigonum is noted. There are degenerative changes in the subtalar/talocalcaneal joint, most prominent at the mid facet level and sustentacular talus.. Milder degenerative changes are noted in the talonavicular joint. The talar head is medially r otated/uncovered at this articulation. Calcaneocuboid articulation appears unremarkable with the exception of a small effusion. There is no significant bone edema evident in the navicular nor in the cuneiform bones and metatarsal bases. The main Lisfranc ligament is intact LIGAMENTS: The anterior and posterior tibiofibular syndesmotic ligaments appear intact. The anterior talofibular ligament is significantly attenuated and exhibits surrounding signal abnormality, including in the anterolateral gutter, consistent with chronic sprain-partial tearing. The posterior talofibular ligament appears intact. The calcaneal fibular ligament appears chronically torn. On the medial aspect of the ankle the deltoid ligament appears somewhat thickened but without high-grade tear. Suspensory calcaneonavicular ligament appears intact. SINUS TARSI: There is loss of normal fat signal. No evidence of sinus tarsi ganglia on cyst. MUSCULOTENDINOUS STRUCTURES: Achilles tendon: Unremarkable. No evidence of tear nor significant tendinitis/tendinosis. Plantar fascia: Unremarkable. No evidence of tear, abnormal thickening, nor abnormal nodularity. Anterior Extensor tendons: Unremarkable. Medial Tendons: Posterior Tibialis: Intact but deviated medially by the uncovering-medial rotation of the talar head. No evidence of tendinitis nor tear. Mild tenosynovitis. Flexor Digitorum longus: Mild tenosynovitis. No evidence of tear Flexor Hallicus longus: Unremarkable. No tear or tenosynovitis evident. Lateral Tendons: Peroneus longus: Tenosynovitis evident along its entire course both on the lateral aspect and undersurface of the ankle/foot. However, no evidence of tear. Peroneus brevis:Proximal tenosynovitis. No tear. SOFT TISSUES: Mild edema. No significant focal fluid collections and no evidence of para-articular ganglion cysts. IMPRESSION: 1. Hindfoot valgus with significant degenerative changes in the ankle/tibiotalar and subtalar/ talocalcaneal joints. There is also a mature osteochondral defect on the medial aspect of the talar dome which measures 7 mm widex 11 mm AP x 2 mm deep. Os trigonum noted. 2. There are chronic appearing tears of the anterior talofibular and calcaneofibular ligaments. 3. There is a tenosynovitis of the tendons both medially and laterally, most prominent along the entire length of the peroneus longus tendon. However, there are no distinct tendon tears. Achilles tendon appears unremarkable as does the plantar fascia. 4. There is hindfoot valgus with medial rotation and uncovering of the medial aspect of the distal talus. 5. Lisfranc joint and ligament are intact. There is no significant intra osseous edema evident in the cuneiform bones nor in the visualized metatarsal bases. DATA REPOSITORY:
== END 2025-04-25 01:15 ==
PROVIDERS: PCP Family Medicine; Visit Provider Orthopaedic Surgery
DX: M25.571 Pain in right ankle and joints of right foot (principal); G89.29 Other chronic pain; M25.572 Pain in left ankle and joints of left foot
CPT/HCPCS: 73721